=== PATIENT | male | born 1980 | race Caucasian/White ===

== ENCOUNTER 2023-08-04 16:33 | Emergency (ER) | payer OTHER, SELFPAY ==
[2023-08-04 16:39] VITALS: BP 117/71; PULSE 70; RESP 16; TEMP 36.7; O2SAT 97; BMI 23.6
--- NOTE | 2023-08-04 17:08 | W.ED.WOUNDLC ---
HPI - Wound/Laceration General: Chief Complaint: Wound/Laceration Stated Complaint: left knee lac Time Seen by Provider: 08/04/23 16:37 Source: patient Mode of arrival: ambulatory History of Present Illness: 43-year-old male presents emergency room with complaint of left leg laceration lateral to the knee superficial approximately 5 to 6 cm in total length. No other injury patient reports tetanus is up-to-date he was working with a chainsaw at home he was ambulatory to the department he is not having difficulty walking. Onset (ago): minute(s) Extremity Location: Left: knee Place: home Associated symptoms: Denies chills, fever(s), foreign body sensation, inability to move, numbness or pain Review of Systems Const: Denies: fever(s) or chills Card: Denies: chest pain Resp: Denies: dyspnea GI: Denies: abdominal pain : Denies: dysuria, urinary frequency or urinary urgency Skin/Breast: Denies: rash or pruritus Physical Exam Const: COMMON NORMALS: no acute distress GENERAL APPEARANCE: cooperative and comfortable ORIENTATION/CONSCIOUSNESS: Yes awake, Yes oriented to person, Yes oriented to place and Yes oriented to time Neuro: SENSORIUM/ORIENTATION: Yes oriented to person, Yes oriented to place and Yes oriented to time Skin: OTHER: Full-thickness laceration lateral to the knee is not involved in a subcuticular joint structures. No active bleeding small adjacent partial-thickness laceration not requiring sutures Procedures Laceration Laceration 1: Site: lower extremity Side (If applicable): left Size (cm): 6 Description: linear Depth: simple, single layer Pre-repair: irrigated extensively Skin layer closed with: nylon Size (cm): 4-0 Number of sutures: 1 Technique: running Course Vital Signs: Vital signs: Vital Signs Temperature 98.1 F 08/04/23 17:38 Pulse Rate 70 08/04/23 17:38 Respiratory Rate 16 08/04/23 17:38 Blood Pressure 117/71 08/04/23 17:38 Pulse Oximetry 97 08/04/23 17:38 Oxygen Delivery Me thod Room Air 08/04/23 16:39 MDM - Wound/Laceration Medical Decision Making Running locking suture placed. Discussed with the patient he declined local anesthetic instead we just quickly placed the sutures which he tolerated well wound care instructions given Keflex 750 twice daily for 5 days topical antibiotic ointment return if has any worsening problems or signs of infection Discharge Plan Discharge Patient Disposition: Home Clinical Impression: Laceration Condition: Stable Prescriptions: New mupirocin 2 % ointment 1 applic topical BID Qty: 22 0RF cephalexin 750 mg capsule 750 mg PO BID 5 Days Qty: 10 0RF Discharge Orders: Discharge ED (Routine); Ordered 08/04/23 Ordered By: Ephraim Monsivais Discharge Diet: Usual diet Discharge Activity: Increase activity as tolerated Patient Instructions: Care For Your Stitches (ED), Laceration (ED), Opioid Safety, Pain Management Activity Restrictions/Additional Instructions: Remove sutures in 10 to 14 days Coding Level of Care Code ED Underground Miner for Qian Ramirez
[2023-08-04 17:38] VITALS: BP 117/71; PULSE 70; RESP 16; TEMP 36.7; O2SAT 97
== END 2023-08-04 17:39 | disposition home or self-care (01) ==
PROVIDERS: Emergency Provider Family Medicine
DX: S81.012A Laceration without foreign body, left knee, initial encounter (principal); W29.3XXA Contact with powered garden and outdoor hand tools and machinery, initial encounter
CPT/HCPCS: 12002; 99283; J0690

== ENCOUNTER → 2024-04-24 09:24 | Outpatient (BNVA) | payer OTHER, SELFPAY | PROVIDERS: Visit Provider Nurse Practitioner Family | DX: S69.91XA Unspecified injury of right wrist, hand and finger(s), initial encounter (principal); X58.XXXA Exposure to other specified factors, initial encounter | CPT/HCPCS: 73110; 73130 ==

== ENCOUNTER → 2024-06-03 09:33 | Outpatient (BNVA) | payer SELFPAY | PROVIDERS: Visit Provider Nurse Practitioner Family | DX: R06.02 Shortness of breath (principal) | CPT/HCPCS: 71046 ==

== ENCOUNTER 2025-09-25 06:10 | Emergency (ER) | payer SELFPAY ==
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
--- NOTE | 2025-09-25 06:19 | XRR_ITS ---
PROCEDURE INFORMATION: Exam: XR Left Ankle Exam date and time: 09/25/2025 6:48 AM Age: 45 years old Clinical indication: Injury or trauma; Sprain or strain; --pt. States that he tripped while in a hurry because he was late for work, hurting his left ankle. TECHNIQUE: Imaging protocol: Radiologic exam of the left ankle. Views: 3 or more views. COMPARISON: No relevant prior studies available. FINDINGS: Bones/joints: Moderate lateral soft tissue swelling. No fracture or dislocation. Soft tissues: Normal. XR/XR ankle LT min 3V* [id number] IMPRESSION: Lateral soft tissue swelling.
[2025-09-25 06:22] VITALS: BP 114/76; PULSE 76; RESP 18; TEMP 36.6; O2SAT 96; BMI 25.2
--- NOTE | 2025-09-25 06:25 | ED_ITS ---
HPI - General Adult General: Chief complaint: Extremity Injury, Lower Stated complaint: Left ankle injury Time Seen by Provider: 09/25/25 06:19 History of Present Illness: 45-year-old male was leaving to go to [facility] and injured his left ankle with an inversion injury while running. Complains of pain lateral portion of the left ankle. Denies any other injury. No previous injuries to the left ankle. Related Data Previous Rx's ?Medication ?Instructions ?Recorded diclofenac sodium 75 mg 75 mg PO Q12H PRN pain #20 t abs 09/25/25 tablet,delayed release Allergies Allergy/AdvReac Type Severity Reaction Status Date / Time Iodinated Contrast Media Allergy ALGY-Anaphy Verified 06/03/24 09:04 laxis [facility] ED PFSH: Social History Smoking and tobacco/nicotine status: unknown if used tobacco/nicotine Physical Exam Extremity: OTHER: Examination of the left foot patient has good dorsalis pedis posterior tibialis pulses large amount of swelling on the lateral malleolus of the left foot there is no ecchymosis no lacerations no obvious deformity Course Vital Signs: Vital signs: Vital Signs Temperature 97.8 F 09/25/25 06:22 Pulse Rate 76 09/25/25 06:22 Respiratory Rate 18 09/25/25 06:22 Blood Pressure 114/76 09/25/25 06:22 Pulse Oximetry 96 09/25/25 06:22 [facility] - General Adult Medical Decision Making X-rays does not show any acute fracture. Placed patient in a posterior splint nonweightbearing for the next 2 to 3 days can advance to toe-touch weightbearing as tolerated. If not improving over the next several days follow-up with primary care for reevaluation. Start diclofenac 1 every 12 hours as needed. Elevate the affected extremity and ice for 20 minutes 4-5 times per day Differential Diagnosis Ankle sprain versus fracture XR interpretation done by ED provider, pending radiology final review ED provider radiology interpretation(s): Reviewed and evaluated the left ankle film myself in the emergency room. No acute fractures noted normal alignment Discharge Plan Discharge Patient Disposition: Home Clinical Impression: Ankle sprain and strain Condition: Stable Prescriptions: New diclofenac sodium 75 mg tablet,delayed release (DR/EC) 75 mg PO Q12H PRN (Reason: pain) Qty: 20 0RF Discharge Orders: Discharge ED (Routine); Ordered 09/25/25 Ordered By: Ephraim Monsivais Discharge Diet: Usual diet Discharge Activity: Limit activity as instructed Patient Instructions: Ankle Sprain (ED), Opioid Safety, Pain Management, Patient Portal & Wei Instructions Activity Restrictions/Additional Instructions: [facility]. It is very important that you follow up as instructed or that you return to the Emergency Department should you have concerns or if your condition changes or worsens in any way. Emergency department visits are focused on emergent conditions, in some cases you may require further evaluation on an outpatient basis. You were seen in the emergency room after an inversion injury to your left ankle. X-ray does not show any acute fractures. Placed you in a splint and use crutches nonweightbearing on the foot for the next several days you can advance to toe-touch weightbearing as tolerated. Use diclofenac 1 pill twice a day as needed elevate the leg and apply ice several times a day. If not improving over the next 3 days recheck with your primary care doctor. (Please note that included in your discharge packet is information concerning opioid safety and pain management. This information is given to all patients were discharged from the ER regardless of their discharge diagnosis or the medicines they usually take or are prescribed.) Print Language: Austrian Coding Level of Care Code ED Unclaimed Property Manager for Qian Ramirez
[2025-09-25 07:43] VITALS: BP 127/89; PULSE 84; O2SAT 98
== END 2025-09-25 07:46 | disposition home or self-care (01) ==
PROVIDERS: Emergency Provider Family Medicine
DX: S93.402A Sprain of unspecified ligament of left ankle, initial encounter (principal); X58.XXXA Exposure to other specified factors, initial encounter
CPT/HCPCS: 73610; 99283; E0114

== ENCOUNTER 2025-10-16 08:41 | Outpatient (CLI) | payer SELFPAY ==
--- NOTE | 2025-10-16 08:48 | MR_ITS ---
WS: [id number] MRI LEFT ANKLE WITHOUT CONTRAST. COMPARISON: Radiograph 09/25/2025 Multiplanar, multisequence imaging is performed without contrast. Acute marrow edema with trabecular fractures involving a portion of the cuboid. Edema is predominant within the distal and plantar surface of the cuboid. There is interruption of the trabecular pattern. A subtle increased T2 signal in the medial malleolus. Small amount of edema in the posterior body of the talus near the subtalar joint. Achilles tendon is normal. Plantar fascia is normal. Small joint effusion with heterogeneity probably representing small component of post traumatic bleeding. Tendons in the anterior and posterior compartments are normal. No tendon tear is identified. No tenosynovitis. Anterior inferior and posterior inferior tibiofibular ligaments are intact. Posterior talofibular ligament is normal. The anterior talofibular ligament is not identified. Tear of the ATFL likely. Normal deltoid ligament. Normal spring ligament normal calcaneofibular ligament. Small joint effusion. MR/MR ankle LT wo con* [id number] IMPRESSION: 1. Acute marrow edema with trabecular fractures involving the cuboid. No displ acement. 2. Small complex joint effusion. Small amount of hemorrhage into the joint spa ce from the trauma is likely. 3. Suspect high-grade tear of the ATFL. 4. Very subtle marrow edema in the medial malleolus and posterior body of the talus may be a small amount of edema from the recent trauma. No fractures.
== END 2025-10-16 08:42 | disposition home or self-care (01) ==
LOC: RAD 08:43
PROVIDERS: PCP Family Medicine; Visit Provider Family Medicine
DX: S93.492A Sprain of other ligament of left ankle, initial encounter (principal); X58.XXXA Exposure to other specified factors, initial encounter; R93.7 Abnormal findings on diagnostic imaging of other parts of musculoskeletal system; M25.472 Effusion, left ankle
CPT/HCPCS: 73721